=== PATIENT | female | born 1960 | race African-American/Black ===

== ENCOUNTER 2024-10-12 12:24 | Emergency (ER) | payer MEDICARE, MEDICAID, OTHER ==
[2024-10-12] VITALS (12 sets, daily range): BP systolic 163–201; BP diastolic 64–97
[~2024-10-12] VITALS: Ht 152.4 cm; Wt 66.0 kg
[~2024-10-12 12:24] MED LIST: DIFLUCAN150 MG PO
[2024-10-12] MEDS ORDERED: KETOROLAC TROMETHAMINE 15 MG/ML SDV IV STA (12:37)
[2024-10-12] MEDS ORDERED: SODIUM CHLORIDE 0.9% 1,000 ML IV STA (12:37)
[2024-10-12] MEDS ORDERED: ONDANSETRON HCl 4 MG/2 ML SDV IV STA (12:37)
[2024-10-12] MEDS ORDERED: MORPHINE SULFATE 4 MG/ML VIAL IV STA (12:37)
[2024-10-12 12:56] LABS: BASO% 0.5 % (0-3); EOS% 0.5 % (0-8); HEMOGLOBIN 12.3 g/dl (12.0-16.0); LYMPH% 17.7 % (15-41); MEAN CELL VOLUME 86.6 fL CALC (80.0-100.0); MEAN CORPUSCULAR HGB CONC 32.4 g/dL CAL (32.0-36.0); NEUT# 6.68 thou/uL (2.00-7.15); NEUT% 75.3 % (42-76); RED BLOOD COUNT 4.39 mill/uL (4.20-5.60); RED CELL DISTRI WIDTH 14.8 % (11.5-15.5)
[2024-10-12 13:07] LABS: ALBUMIN 4.3 g/dL (3.2-5.0); CREATININE 0.9 mg/dL (0.5-1.0); POTASSIUM 3.5 mmol/l (3.5-5.1); TOTAL PROTEIN 7.8 g/dL (6.3-8.2)
[2024-10-12 13:11] LABS: BILIRUBIN, TOTAL 0.8 mg/dL (0.02-1.3)
[2024-10-12] MEDS ORDERED: METHOCARBAMOL500 MG PO (14:24)
[2024-10-12] MEDS ORDERED: TRAMADOL HYDROC50 M1 PO (14:24)
== END 2024-10-12 16:27 | disposition home or self-care (01) ==
LOC: ED 12:24
PROVIDERS: Nurse Practitioner
DX: R10.31 Right lower quadrant pain (principal); I10 Essential (primary) hypertension; E11.9 Type 2 diabetes mellitus without complications
CPT/HCPCS: J1885; J2405